=== PATIENT | male | born 1990 | race American Indian/Alaskan Native ===

== ENCOUNTER 2021-07-14 07:50 | Emergency (ER) | payer OTHER ==
[~2021-07-14] VITALS: Ht 172.7 cm; Wt 100.0 kg
--- NOTE | 2021-07-14 08:15 | NUR ---
PROVIDER AT BEDSIDE
[2021-07-14 08:29] LABS: BASOPHILS % (AUTO) 0.5 % (0-1); EOSINOPHILS # (AUTO) 0.1 X10'3 (0-0.9); EOSINOPHILS % (AUTO) 0.8 % (0-6); HEMATOCRIT 43.2 % (42.0-52.0); HEMOGLOBIN 14.4 g/dl (14.0-17.9); LYMPHOCYTES # (AUTO) 1.1 X10'3 (1.1-4.8); LYMPHOCYTES % (AUTO) 15.6 % (21-51); MEAN CORPUSCULAR HGB CONC 33.4 g/dL (33.0-36.5); MEAN PLATELET VOLUME 7.6 FL (7.4-10.4); MONOCYTES # (AUTO) 0.5 X10'3 (0-0.9); MONOCYTES % (AUTO) 6.6 % (2-12); NEUTROPHILS # (AUTO) 5.3 X10'3 (1.8-7.7); NEUTROPHILS % (AUTO) 76.5 % (42-75); PLATELET COUNT 328 X10'3 (140-440); RED BLOOD COUNT 4.97 X10'6 (4.70-6.10); RED CELL DISTRIBUTION WIDTH 13.6 % (11.5-14.5)
--- NOTE | 2021-07-14 08:30 | NUR ---
US AT BEDSIDE
[2021-07-14] MEDS: ondansetron/PF 4mg/2ml inj IV ONE (08:50)
--- NOTE | 2021-07-14 08:50 | NUR ---
PIV AND FLUIDS STARTED, MEDS GIVEN PER EMAR.
[2021-07-14 08:51] LABS: ALANINE AMINOTRANSFERASE 62 U/L (12-78); ALBUMIN 3.6 G/DL (3.4-5.0); ALBUMIN/GLOBULIN RATIO 0.9 (1.1-1.5); ALKALINE PHOSPHATASE 85 IU/L (46-116); ANION GAP 6 (8-16); ASPARTATE AMINO TRANSFERASE 24 U/L (10-37); BILIRUBIN,TOTAL 0.3 MG/DL (0.1-1.0); BLOOD UREA NITROGEN 9 MG/DL (7-18); BUN/CREATININE RATIO 10.2 (5.4-32.0); CALCIUM 8.8 MG/DL (8.5-10.1); CHLORIDE 107 MMOL/L (99-107); CREATININE 0.88 MG/DL (0.60-1.10); GLUCOSE 119 MG/DL (70-104); LIPASE 62 U/L (73-393); POTASSIUM 3.8 MMOL/L (3.5-5.1); SODIUM 142 MMOL/L (135-145); TOTAL CARBON DIOXIDE 29.1 MMOL/L (24-32); TOTAL PROTEIN 7.5 G/DL (6.4-8.2); eGFR > 90 ML/MIN
[2021-07-14] MEDS: normal saline 1000ML IV soln IVB ONE (08:52)
--- NOTE | 2021-07-14 09:25 | NUR ---
PT AMBULATED WITH STEADY GAIT TO/FROM RESTROOM, NO DISTRESS
--- NOTE | 2021-07-14 09:29 | NUR ---
PROVIDER AT BEDSIDE
[2021-07-14 09:43] LABS: COLOR,URINE YELLOW (Yellow); GLUCOSE, URINE NEGATIVE (Neg); KETONES,URINE NEGATIVE (Neg); LEUKOCYTE ESTERASE ,URINE NEGATIVE (Neg); NITRITES, URINE NEGATIVE (Neg); OCCULT BLOOD,URINE NEGATIVE (Neg); PH,URINE 7.5 (4.8-8.0); PROTEIN,URINE NEGATIVE (Neg); UROBILINOGEN,URINE 0.2 E.U/dL (0.2-1.0)
[2021-07-14 09:51] LABS: CLARITY,URINE SLIGHTLY CLOUDY (Clear)
[2021-07-14 09:53] LABS: UA COLLECTION TYPE NON-SPECIFIED
[2021-07-14 09:54] LABS: MUCUS STRANDS FEW /LPF (Neg)
[2021-07-14 09:57] LABS: RBC,URINE 0-2 /HPF (0-2); SQUAMOUS EPITHELIAL CELL,UR FEW /LPF (FEW); WBC CLUMPS,URINE FEW /HPF (NEGATIVE)
[2021-07-14 10:02] LABS: COARSE GRANULAR CAST 0-3 /LPF (NEGATIVE); HYALINE CASTS 0-3 /LPF (NEGATIVE)
[2021-07-14 10:05] LABS: AMORPHOUS PHOSPHATES 1+
[2021-07-14 10:08] LABS: BACTERIA,URINE FEW /HPF (Neg)
[2021-07-14 10:13] VITALS: BP 145/89
--- NOTE | 2021-07-18 09:09 | NUR ---
Pt. contacted with follow up from [facility] with positive urine culture, Rx for Levoquin called in to [facility].
== END 2021-07-14 10:19 | disposition home or self-care (01) ==
LOC: ER 07:51
DX: K80.50 Calculus of bile duct without cholangitis or cholecystitis without obstruction (principal); R10.13 Epigastric pain; R10.11 Right upper quadrant pain; R11.0 Nausea; K80.20 Calculus of gallbladder without cholecystitis without obstruction; Z72.89 Other problems related to lifestyle
CPT/HCPCS: 36415; 76700; 80053; 81001; 83690; 85025; 87077; 87088; 87186; 96361; 96374; 99284; J2405; J7030